=== PATIENT | male | born 1980 | race Caucasian/White ===

== ENCOUNTER 2021-03-29 16:08 | Emergency (ER) | payer SELFPAY ==
[2021-03-29 16:09] VITALS: BP 125/80; PULSE 109; RESP 17; TEMP 36.6; O2SAT 97; BMI 21.7
--- NOTE | 2021-03-29 16:17 | EX.ED.DYSGE1 ---
HPI History of Present Illness Chief Complaint: Lower Extremity Injury Informant: patient Narrative Narrative: Patient is a 40-year-old previously healthy male who presents to the emergency department for redness and swelling to his left leg. This initially started this past Monday and has been progressively getting worse. He states that he did see spiders crawling up his leg at 1 point and he felt like one might have bitten him. There are 2 small spots just superior to the knee where he believes it bit him at. He denies any systemic symptoms including any fever/chills. No nausea/vomiting. He does have full range of motion of each joint of his leg. It does hurt to walk. He has been taking ibuprofen which does give him temporary relief. He denies any history of DVT/PE. No family history of blood clots. No recent surgeries or periods of prolonged immobility. PFSH PFSH Home Medications cephalexin 500 mg PO Q6H 10 Days #40 cap 03/29/21 [Rx Last Taken Unknown] sulfamethoxazole-trimethoprim [Bactrim DS] 1 tab PO BID 10 Days #20 tab 03/29/21 [Rx Last Taken Unknown] Allergy/AdvReac Type Severity Reaction Status Date / Time Iodinated Contrast Media Allergy Other Verified 03/29/21 16:11 [Iodinated Contrast Media - IV Dye] shellfish derived Allergy Other Verified 03/29/21 16:11 Social History Smoking Status: Current every day smoker tobacco type: cigarettes ROS ROS ED Constitutional Constitutional ED: Denies chills or fever(s) Eyes Eyes: Denies change in vision ENT ENT ED: Denies epistaxis or rhinorrhea Cardiovascular Cardiovascular: Denies chest pain or palpitations Respiratory/Chest Respiratory/Chest: Denies cough, dyspnea or dyspnea on exertion Gastrointestinal Gastrointestinal: Denies abdominal pain, nausea or vomiting Genitourinary Genitourinary ED: Denies dysuria, hematuria or urinary frequency Musculoskeletal Musculoskeletal: Reports other Details: Left leg pain ; Denies arthralgias, back pain or neck pain Integumentary Reports other Details: Erythema of left lower leg Neurologic Neurologic: Denies dizziness, headache(s) or weakness EXAM Physical Exam Const Vital Signs: 03/29/21 16:09 Temperature 97.9 F Temperature Source Temporal Pulse Rate 109 H Respiratory Rate 17 Blood Pressure 125/80 H Blood Pressure Mean 95 Pulse Ox 97 Positive well nourished and well developed General Appearance ED: well developed and NAD HEENT Reports normocephalic, head/scalp atraumatic and moist mucous membranes Eyes PERRL and EOMs intact bilaterally Neck supple Chest Wall inspection of chest normal Resp normal respiratory effort and clear to auscultation bilaterally Auscultation: Negative for rales, rhonchi or wheezes Cardio regular rhythm and no murmurs Rate: other Other Details: Borderline tachycardic GI normal to inspection, nondistended, normoactive bowel sounds and non-tender Palpation: soft; Negative for guarding or rebound tenderness present Extremity Extremity Narrative: Swelling, erythema and warmth extending from just superior to the left knee all the way down to lower third of the mahajan. There is 1+ edema present. This is tender to touch. Negative Homans' sign. 2+ DP pulse. Sensation intact. Neuro no sensory deficits noted Sensorium / Orientation: alert Motor Exam: strength 5/5 throughout Psych mental status grossly normal MDM MDM MDM Narrative Medical decision making narrative: Patient presents to the ED for suspected spider bite to left lower leg. He actually did see spiders crawling on him. The leg has been getting larger and, tender as well as becoming more red. Given the swollen nature of the leg I did recommend ultrasound of the leg to evaluate for DVT but patient does not want any work-up done. He is concerned about paying for this. Patient only wants to start with antibiotics. I discussed risk with this and he understands this. We will write a prescription for Bactrim and Keflex. Border of the erythematous region is marked off. If this extends, gets worse or you develop systemic symptoms he needs to return to the emergency department. I did make a referral for a PCP. Patient will be discharged home in stable condition. He understands and is agreeable to plan. Impression: #1 left leg cellulitis Discharge Plan Triage Chief Complaint: Lower Extremity Injury ED Provider: Manuelito Adams Dx/Rx/DC Orders Instructions: Cellulitis Prescriptions: New sulfamethoxazole-trimethoprim [Bactrim DS] 800-160 mg tablet 1 tab PO BID 10 Days Qty: 20 RF: 0 cephalexin 500 mg capsule 500 mg PO Q6H 10 Days Qty: 40 RF: 0 Referrals: Ned Katz MD [NON-STAFF] - 2 Days for wound check Disposition Disposition: Home, Self Care
== END 2021-03-29 17:17 | disposition home or self-care (01) ==
PROVIDERS: Emergency Provider Emergency Medicine
DX: L03.116 Cellulitis of left lower limb (principal); F17.210 Nicotine dependence, cigarettes, uncomplicated
CPT/HCPCS: 99282